=== PATIENT | female | born 1950 | race Caucasian/White ===

== ENCOUNTER → 2017-02-04 | Outpatient (CLI) | payer MEDICARE ==
--- NOTE | 2017-02-04 07:50 | MM ---
Reason for exam: additional evaluation requested from abnormal screening. Last mammogram was performed less than 1 month ago. History: Patient is postmenopausal. Took estrogen for 12 years beginning at age 48. Physical Findings: Nurse did not find any significant physical abnormalities on exam. MG 3D Work Up W/Cad LT Spot compression CC, spot compression MLO, and ML view(s) were taken of the left breast. Prior study comparison: February 02, 2017, bilateral MG 3d screening mammo w/cad. January 28, 2016, bilateral MG screening mammo w CAD. The breast tissue is heterogeneously dense. This may lower the sensitivity of mammography. There is no discrete abnormality. These results were verbally communicated with the patient and result sheet given to the patient on 02/04/17. ASSESSMENT: Negative, BI-RAD 1 RECOMMENDATION: Return to routine screening mammogram schedule for both breasts.
== END ==
LOC: RADMAMWWP 06:44
PROVIDERS: ATTEND Obstetrics & Gynecology

== ENCOUNTER → 2017-11-30 | Outpatient (CLI) | payer MEDICARE ==
[2017-11-30 12:09] LABS: Blood Urea Nitrogen 20 mg/dL (7-17)
== END | disposition home or self-care (01) ==
LOC: LABWHC1 11:26
PROVIDERS: ATTEND Orthopaedic Surgery
DX: Z01.812 Encounter for preprocedural laboratory examination (principal); N28.9 Disorder of kidney and ureter, unspecified
CPT/HCPCS: 36415; 82565; 84520

== ENCOUNTER 2017-12-27 11:10 | Day surgery (SDC) | payer MEDICARE ==
[2017-12-21 11:26] VITALS: BMI 24.7
[~2017-12-27 11:10] MED LIST: DEXAMETHASONE SOD PHOSPHATE 10 MG/ML 1 ML VIAL IV ONE; HYDROmorphone 0.5 MG/0.5 ML SYRINGE IVP PRN; LACTATED RINGERS 1,000 ML IV SCH; ONDANSETRON 4 MG/2 ML VIAL IVP ONE; Pre Op ABX Message 1 EACH MISC MISCELLANE ONE
[2017-12-27 11:47] VITALS: RESP 16
[2017-12-27] MEDS ORDERED: LIDOCAINE 1% 20 ML VIAL (10MG/ML) FOR IV START INTRADERMA ONE (11:47)
[2017-12-27] MEDS ORDERED: MIDAZOLAM 2 MG/2 ML VIAL ONE (12:19)
[2017-12-27] MEDS ORDERED: KETAMINE 10 MG/ML 20 ML VIAL ONE (12:19)
[2017-12-27] MEDS ORDERED: PROPOFOL 10 MG/ML 20 ML VIAL IV ONE (12:19)
[2017-12-27] MEDS ORDERED: fentaNYL (PF) 50 MCG/ML 2 ML AMP ONE (12:19)
[2017-12-27] MEDS ORDERED: diphenhydrAMINE 50 MG/ML 1 ML VIAL ONE (12:19)
[2017-12-27] MEDS ORDERED: ceFAZolin 1,000 MG in SODIUM CHLORIDE 0.9% 1,000 ML IRRIGATION ONE (12:37)
[2017-12-27] MEDS ORDERED: BUPIVACAIN-EPI 0.25%-1:200,000 30 ML VIAL SQ ONE (12:37)
[2017-12-27 13:11] VITALS: TEMP 96.8
[2017-12-27] MEDS ORDERED: LACTATED RINGERS 1,000 ML IV ONE (13:50)
[2017-12-27 14:58] VITALS: BP 126/79; PULSE 64
--- NOTE | 2017-12-29 10:35 | P.OP ---
Date of Procedure: 12/27/17 Procedure(s) Performed: incisional biopsy anterior right knee mass mass c/w bursal tissue with trapped fluid. 3cm size no cyst seen sent to pathology PREOPERATIVE DIAGNOSES: 1. Right knee anterior mass consistent with cyst POSTOPERATIVE DIAGNOSES: 1. Right knee anterior mass, consistent with trapped fluid in prepatellar bursa PROCEDURES PERFORMED: 1. Right knee anterior mass excisional biopsy ANESTHESIA: General ESTIMATED BLOOD LOSS: Less than 25 cc TOURNIQUET: None GUIDE DOG INSTRUCTOR: None COMPLICATIONS: None DISPOSITION: To postanesthesia care unit INDICATIONS: Mrs. Haney is a 67-year-old female who has for several months noticed a mass that has been bothering her because of its location on the anterior aspect of her right knee. She wishes to have the mass excised. I have explained the details of this surgery thoroughly and also explained the potential risks and complications. These are inclusive of, but not limited to: bleeding, infection, scarring, discomfort, blood vessel and nerve damage, stiffness, weakness, need for further surgery, recurrence, failure to relieve symptoms, possibility of malignancy, persistence or worsening of problems, , and other risks. Patient is aware of these risks and agrees to proceed with surgery. The consent form has been signed. PROCEDURE: Appropriate consent was obtained from the patient, who was then taken to the operating room and placed in the supine position. Sedation was initiated. Positioning was performed with care to make sure that all pressure points were adequately padded. Bear-hugger was used along with leg sequential compression device(s). Prepping and draping was completed in the usual aseptic fashion using Chloraprep. Timeout was called, confirming patient identity, side , procedure, and administration of antibiotics. The patient received no intravenous antibiotics prior to incision. Oblique incision along Srini's lines was created directly over the mass for a distance of approximately 1.5 inches. Incision was carried down just through skin and into subcutaneous tissue where the mass was easily located. Careful dissection around the mass occurred using dissecting scissors. The mass was consistent with trapped fluid within the prepatellar bursa. There was really no significant cyst wall present, just collagenous/scar tissue within the prepatellar bursa that had last around a small 3 cm fluid collection. No evidence of infection. Bursal material in this region was removed carefully using dissecting scissors. Resected material was sent to pathology for analysis. Typical serous type fluid was able to be evacuated from the fluid collection. No evidence of pus. Incision was irrigated out thoroughly with normal saline and hemostasis was obtained using electrocautery. Subcutaneous tissue was closed using 2-0 Vicryl suture, followed by skin closure with 4-0 Monocryl suture and Dermabond. Sterile dressing was then applied. Patient tolerated the procedure well and was transferred to recovery room in stable condition. Sponge and needle counts are correct.
== END 2017-12-27 15:20 | disposition home or self-care (01) ==
LOC: OR 11:10
PROVIDERS: ATTEND Orthopaedic Surgery
DX: R22.41 Localized swelling, mass and lump, right lower limb (principal); Z79.899 Other long term (current) drug therapy; I10 Essential (primary) hypertension; E78.5 Hyperlipidemia, unspecified; M81.0 Age-related osteoporosis without current pathological fracture
CPT/HCPCS: 88304; 27340; J2250; J1200; J1100; J2405; J0690; J3010; J2704

== ENCOUNTER → 2018-01-27 | Outpatient (CLI) | payer MEDICARE ==
[2018-01-27 08:53] LABS: Basophils % (A) 1 %; Eosinophils # (A) 0.4 k/uL (0-0.7); Eosinophils % (A) 6 %; HCT 43.5 % (34.0-46.0); Lymphocytes # (A) 2.1 k/uL (1.0-4.8); Lymphocytes % (A) 36 %; MCH 29.4 pg (25.0-35.0); MCHC 32.2 g/dL (31.0-37.0); MCV 91.4 fL (80.0-100.0); Mean Platelet Volume 6.7; Monocytes # (A) 0.4 k/uL (0-1.0); Monocytes % (A) 6 %; Neutrophils # (A) 2.8 k/uL (1.3-7.7); Neutrophils % (A) 49 %; Platelet Count 267 k/uL (150-450); RBC 4.75 m/uL (3.80-5.40); RDW 12.7 % (11.5-15.5); WBC 5.8 k/uL (3.8-10.6)
[2018-01-27 09:00] LABS: Appearance,Urine Clear (Clear); Bacteria,Urine Rare /hpf; Bilirubin,Urine Negative (Negative); Blood,Urine Negative (Negative); Color,Urine Yellow; Glucose,Urine (UA) Negative (Negative); Ketones,Urine Negative (Negative); Leukocyte Esterase,Urine Moderate (Negative); Mucus,Urine Rare /hpf; Nitrite,Urine Negative (Negative); PH, Urine 7.5 (5.0-8.0); Protein,Urine Negative (Negative); Specific Gravity,Urine 1.012 (1.001-1.035); Squamous Epithelial Cell,Urine 3 /hpf (0-4); Urobilinogen,Urine <2.0 mg/dL (<2.0); WBC,Urine 2 /hpf (0-5)
[2018-01-27 09:38] LABS: ALT 50 U/L (9-52); AST 41 U/L (14-36); Albumin 4.1 g/dL (3.5-5.0); Alkaline Phosphatase 45 U/L (38-126); Anion Gap 8 mmol/L; Blood Urea Nitrogen 16 mg/dL (7-17); Calcium 9.6 mg/dL (8.4-10.2); Carbon Dioxide 29 mmol/L (22-30); Chloride 105 mmol/L (98-107); Cholesterol 243 mg/dL (<200); Glucose 104 mg/dL (74-99); HDL Cholesterol 82 mg/dL (40-60); LDL Cholesterol,Calculated 134 mg/dL (0-99); Potassium 4.3 mmol/L (3.5-5.1); Sodium 142 mmol/L (137-145); Total Bilirubin 0.7 mg/dL (0.2-1.3); Total Protein 7.1 g/dL (6.3-8.2); Triglycerides 135 mg/dL (<150)
== END ==
LOC: LABWHC1 07:38
PROVIDERS: ATTEND Internal Medicine
DX: E55.9 Vitamin D deficiency, unspecified (principal); I10 Essential (primary) hypertension
CPT/HCPCS: 36415; 80053; 80061; 81001; 82306; 85025

== ENCOUNTER → 2018-02-03 | Outpatient (CLI) | payer MEDICARE ==
--- NOTE | 2018-02-03 13:48 | MM ---
Reason for exam: screening (asymptomatic). Last mammogram was performed 1 year ago. History: Patient is postmenopausal. Took estrogen for 12 years beginning at age 48. Physical Findings: A clinical breast exam by your physician is recommended on an annual basis and results should be correlated with mammographic findings. MG 3D Screening Mammo W/Cad Bilateral CC and MLO view(s) were taken. Prior study comparison: February 04, 2017, left breast MG 3d work up w/cad LT. February 02, 2017, bilateral MG 3d screening mammo w/cad. The breast tissue is heterogeneously dense. This may lower the sensitivity of mammography. No significant changes when compared with prior studies. ASSESSMENT: Negative, BI-RAD 1 RECOMMENDATION: Routine screening mammogram of both breasts in 1 year.
== END | disposition home or self-care (01) ==
LOC: RADMAMWWP 07:00
PROVIDERS: ATTEND Internal Medicine
DX: Z12.31 Encounter for screening mammogram for malignant neoplasm of breast (principal)
CPT/HCPCS: 77063; 77067

== ENCOUNTER → 2019-02-01 | Outpatient (CLI) | payer MEDICARE ==
[2019-02-01 07:32] LABS: Basophils % (A) 1 %; Eosinophils # (A) 0.3 k/uL (0-0.7); Eosinophils % (A) 6 %; HCT 39.8 % (34.0-46.0); HGB 13.3 gm/dL (11.4-16.0); Lymphocytes # (A) 1.8 k/uL (1.0-4.8); Lymphocytes % (A) 36 %; MCH 30.1 pg (25.0-35.0); MCHC 33.4 g/dL (31.0-37.0); MCV 90.3 fL (80.0-100.0); Mean Platelet Volume 5.6; Monocytes # (A) 0.4 k/uL (0-1.0); Monocytes % (A) 8 %; Neutrophils # (A) 2.3 k/uL (1.3-7.7); Neutrophils % (A) 47 %; Platelet Count 294 k/uL (150-450); RBC 4.41 m/uL (3.80-5.40); RDW 12.3 % (11.5-15.5); WBC 4.9 k/uL (3.8-10.6)
[2019-02-01 07:39] LABS: Appearance,Urine Clear (Clear); Bacteria,Urine Rare /hpf; Bilirubin,Urine Negative (Negative); Blood,Urine Negative (Negative); Color,Urine Yellow; Glucose,Urine (UA) Negative (Negative); Ketones,Urine Negative (Negative); Leukocyte Esterase,Urine Small (Negative); Mucus,Urine Rare /hpf; Nitrite,Urine Negative (Negative); Protein,Urine Negative (Negative); RBC,Urine 1 /hpf (0-5); Specific Gravity,Urine 1.015 (1.001-1.035); Squamous Epithelial Cell,Urine 3 /hpf (0-4); Urobilinogen,Urine <2.0 mg/dL (<2.0); WBC,Urine 3 /hpf (0-5)
[2019-02-01 12:10] LABS: African American GFR (CKD) 87.8 (60.0-200.0); Albumin 4.2 g/dL (3.80-4.90); Albumin/Globulin Ratio 2.47 (1.60-3.17); Anion Gap 7.1 mmol/L (4.00-12.00); BUN/Creat Ratio 23.75 Ratio (12.00-20.00); Calcium 9.6 mg/dL (8.7-10.3); Carbon Dioxide 28.9 mmol/L (21.6-31.8); Chol/HDL Ratio 2.93; Globulin 1.7 g/dL (1.6-3.3); LDL Cholesterol,Calculated 111.2 mg/dL (0.0-131.0); Total Bilirubin 0.7 mg/dL (0.3-1.2); Total Protein 5.9 g/dL (6.2-8.2); VLDL Calculation 23.8 mg/dL (5.00-40.00)
== END | disposition home or self-care (01) ==
LOC: LABWHC1 06:34
PROVIDERS: ATTEND Internal Medicine
DX: G47.00 Insomnia, unspecified (principal); I10 Essential (primary) hypertension; Z87.39 Personal history of other diseases of the musculoskeletal system and connective tissue
CPT/HCPCS: 36415; 80053; 80061; 81001; 82306; 84443; 85025

== ENCOUNTER → 2020-01-10 | Outpatient (CLI) | payer MEDICARE ==
[2020-01-10 12:21] VITALS: BP 128/85; PULSE 67; RESP 18; TEMP 98.1
--- NOTE | 2020-01-10 13:47 | P.HPOB ---
History of Present Illness H&P Date: 01/10/20 Chief Complaint: Vulvar irritation for 1 month This is a 69-year-old 0-2 with an LMP of 1997. She is status post MARTIN/BSO for uterine fibroids. Her last well woman exam was done in March 2019 in [place]. She also had a mammogram done at that time and was benign. She is complaining of intermittent vulvar irritation greatest in the area of the labia minora. She started noticing this around December 11. It does seem to be intermittent and can feel like irritation, pruritus or soreness. The location seems to be variable and sometimes on the right and sometimes on the left side. She especially notices this around the time of wiping. She denies any vaginal discharge or vaginal odor. She is sexually active and has been noticing significant vaginal dryness and discomfort with sexual intercourse even despite using a lubricant. She has not been sexually active for the last couple of weeks because of the vulvar irritation. She has a history of genital HSV about 10 years ago but has not had outbreaks for several years. She states the irritation does not feel like the HSV outbreak that she had in the past. She had taken an antibiotic around the second week of December for an insect bite. Her vulvar irritation started before the antibiotic was started. She has been having some urinary frequency during the past month without dysuria. She has not gotten frequent urinary tract infections or yeast infections in the past. She is in a monogamous relationship and does not feel she is at risk for sexually transmitted infections. She has looked at the vulva and has not noticed any pallor or white patches. Review of Systems She denies fever. She denies respiratory, cardiac, or GI problems. : As above. Past Medical History Past Medical History: Hyperlipidemia, Hypertension, Osteoarthritis (OA) Additional Past Medical History / Comment(s): MASS FRONT OF RIGHT KNEE. Osteoporosis which went to osteopenia after several years use of Actonel and Prolia. Past HOSPICE NURSE history: genital HSV in the past. History of Any Multi-Drug Resistant Organisms: None Reported Past Surgical History: Hysterectomy Additional Past Surgical History / Comment(s): MARTIN/BSO 1997. COLONOSCOPY 2013. Past Anesthesia/Blood Transfusion Reactions: No Reported Reaction Past Psychological History: No Psychological Hx Reported Smoking Status: Never smoker Past Alcohol Use History: Occasional Past Drug Use History: None Reported Additional History: She has been since 1975 and is retired from [employer]. She spends her [place] in [place]. - Past Family History Mother Family Medical History: No Reported History Additional Family Medical History / Comment(s): She denies family history of cancer of the breast uterus or ovaries or colon. Medications and Allergies Home Medications Medication Instructions Recorded Confirmed Type Eszopiclone [Lunesta] 3 mg PO HS 10/04/13 01/10/20 History Lisinopril [Zestril] 10 mg PO DAILY 10/04/13 01/10/20 History Simvastatin [Zocor] 10 mg PO DAILY 10/04/13 01/10/20 History hydroCHLOROthiazide [Hydrodiuril] 12.5 mg PO DAILY 10/04/13 01/10/20 History Biotin 10 mg PO DAILY 10/06/13 01/10/20 History Cholecalciferol [Vitamin D3] 1,000 unit PO DAILY 10/06/13 01/10/20 History Calcium Carbonate [Calcium] 1,200 mg PO DAILY 01/10/20 01/10/20 History Loteprednol Etabonate [Lotemax] 5 ml BOTH EYES DAILY PRN 01/10/20 01/10/20 History Allergies Allergy/AdvReac Type Severity Reaction Status Date / Time No Known Allergies Allergy Verified 12/27/17 11:32 Exam Vital Signs Temp Pulse Resp BP Pulse Ox 01/10/20 12:15 98.1 F 67 18 128/85 99 Intake and Output 01/09/20 01/10/20 01/10/20 22:59 06:59 14:59 Other: Weight 62.142 kg Height 5 feet 2-1/2 inches, weight 137 pounds, BMI 24.7. This is a well-developed well-nourished white female who is alert and oriented times 3 in no acute distress. ABDOMEN: Soft, nontender, without palpable masses. PELVIC EXAM: External genitalia reveals mild to moderate atrophy with mild generalized erythema. There are no focal lesions, leukoplakia, or ulceration. Vagina appears normal with mild to moderate atrophy. There is no evidence of prolapse. Bimanual examination is negative for mass or tenderness. IMPRESSION: 1. 69-year-old menopausal female status post MARTIN/BSO for benign reasons with acute vulvitis possibly secondary to genital atrophy or recent irritant. The exam is not consistent with lichen sclerosus or genital HSV. Differential diagnosis will also include Paige vaginitis, Gardnerella bacterial vaginosis and less likely secondary to UTI. 2. Mild urinary frequency which may or may not be related to #1. 3. Dyspareunia with vaginal dryness secondary to genital atrophy. PLAN: 1. Affirm testing for chlamydia, Gardnerella, and Trichomonas was obtained from the vagina. 2. Urine by clean catch for Urinalysis has been obtained. 3. Kenalog 0.1% cream twice a day as needed. She was advised to avoid over washing, scratching, and rubbing the affected area. 4. When the vulvar irritation has improved, she will have a trial of Premarin vaginal cream 1-2 g intravaginally 2 times weekly. The electronic prescriptions will be sent to [facility] pharmacy on [address]. 5. She was instructed to call if symptoms are not improving or if problems. 6. She was advised to return in one year for her annual well woman exam. She may have this done in [place] since she spends much of the year in [place]. Total time spent with patient 25 minutes.
[2020-01-10 15:50] LABS: Appearance,Urine Clear (Clear); Bilirubin,Urine Negative (Negative); Blood,Urine Negative (Negative); Color,Urine Colorless; Glucose,Urine (UA) Negative (Negative); Ketones,Urine Negative (Negative); Leukocyte Esterase,Urine Negative (Negative); Nitrite,Urine Negative (Negative); Protein,Urine Negative (Negative); Specific Gravity,Urine 1.007 (1.001-1.035); Urobilinogen,Urine <2.0 mg/dL (<2.0)
[2020-01-10 23:42] LABS: Gardnerella Negative (Negative); Source Vagina; Trichomonas Negative (Negative)
--- NOTE | 2020-01-11 20:36 | P.PN ---
Progress Note - Text Progress Note Date: 01/11/20 The patient was notified by phone of the negative urinalysis and negative affirm testing for Paige, Gardnerella, and Trichomonas. She will use the Kenalog cream as directed, then if feeling better, will use the Premarin vaginal cream as directed.
== END | disposition home or self-care (01) ==
LOC: WWCWWP 11:52
PROVIDERS: ATTEND Obstetrics & Gynecology
DX: N76.2 Acute vulvitis (principal); R35.0 Frequency of micturition
CPT/HCPCS: 81003; 87480; 87510; 87660

== ENCOUNTER → 2020-11-07 | Outpatient (CLI) | payer MEDICARE ==
--- NOTE | 2020-11-11 08:56 | MM ---
Reason for exam: screening (asymptomatic). Last mammogram was performed 2 years and 9 months ago. History: Patient is postmenopausal. Took hormonal contraceptives for 15 years. Took estrogen for 12 years beginning at age 48. Physical Findings: A clinical breast exam by your physician is recommended on an annual basis and results should be correlated with mammographic findings. MG 3D Screening Mammo W/Cad Bilateral CC and MLO view(s) were taken. Prior study comparison: February 03, 2018, bilateral MG 3d screening mammo w/cad. February 04, 2017, left breast MG 3d work up w/cad LT. The breast tissue is heterogeneously dense. This may lower the sensitivity of mammography. Lateral asymmetric density left CC view does not persist on 3D images. No significant changes when compared with prior studies. ASSESSMENT: Benign, BI-RAD 2 RECOMMENDATION: Routine screening mammogram of both breasts in 1 year. Patient should continue monthly self breast exams. A negative report should not preclude additional follow up of suspicious palpable abnormalities.
== END | disposition home or self-care (01) ==
LOC: RADMAMWWP 16:11
PROVIDERS: ATTEND Internal Medicine
DX: Z12.31 Encounter for screening mammogram for malignant neoplasm of breast (principal); Z78.0 Asymptomatic menopausal state
CPT/HCPCS: 77063; 77067

== ENCOUNTER → 2021-11-19 | Outpatient (CLI) | payer MEDICARE ==
--- NOTE | 2021-11-19 16:17 | MM ---
Reason for Exam: Screening (asymptomatic). Last mammogram was performed 1 year(s) and 1 month(s) ago. Patient History: Menarche at age 12. First Full-Term at age 26. Left ovary removed at age 46. Right ovary removed at age 46. Hysterectomy at age 46. Postmenopausal. Estrogen for 12 years from age 48 until age 60. Patient used Hormonal Contraceptives for 15 years. Risk Values: Amy 5 year model risk: 1.9%. NCI Lifetime model risk: 5.6%. Prior Study Comparison: 02/04/2017 Left Diagnostic Mammogram, [facility]. 02/03/2018 Bilateral Screening Mammogram, [facility]. 11/07/2020 Bilateral Screening Mammogram, [facility]. Tissue Density: The breast tissue is heterogeneously dense. This may lower the sensitivity of mammography. Findings: Analyzed By CAD. There is no suspicious group of microcalcifications or new suspicious mass in either breast. No significant change from prior exams. Overall Assessment: Negative, BI-RAD 1 Management: Screening Mammogram of both breasts in 1 year. A clinical breast exam by your physician is recommended on an annual basis and results should be correlated with mammographic findings. Electronically signed and approved by: Al Whitney D.O.
--- NOTE | 2021-11-19 16:23 | BD ---
EXAMINATION TYPE: Axial Bone Density DATE OF EXAM: 11/19/2021 COMPARISON: 02.02.2017 CLINICAL HISTORY: 70 years year old Female. ICD-10 CODE: M85.88 OTH DISRD OF BONE DENSITY Height: 62 Weight: 142 FRAX RISK QUESTIONS: NOTHING TO NOTE HERE RISK FACTORS HISTORY OF: History of Wrist Fracture: RT WRIST FX A YOUTH Postmenopausal woman: YES, AT AGE 48...TOTAL HYST Take estrogen and/or progesterone medications: YES, IN THE PAST FOR ABOUT 15 YRS Lost more than 2 inches in height since high school: YES Hyperparathyroidism: NO Adrenal Insufficiency: NO MEDICATIONS: Osteoporosis Medications: YES IN THE PAST FOR ABOUT 15YRS AGO FOR FOSAMAX, AND 10YRS AGO X2 YRS OF ME KEL, NOTHING NOW Additional Medications: BP MEDS, STATIN FOR CHOLESTEROL, Additional History: HYPERTENSION, OSTEOPENIA, CHOLESTEROL EXAM MEASUREMENTS: Bone mineral densitometry was performed using the [employer] System. Bone mineral density as measured about the Lumbar spine is: ----- L1-L4(G/cm2): 1.018 T Score Values are as follows: ----- L1: -1.6 ----- L2: -2.3 ----- L3: -1.0 ----- L4: -0.9 ----- L1-L4: -1.3 Bone mineral density has: Increased 4.4% since study of: 02.02.2017 Bone mineral density about the R hip (g/cm2): 0.887 Bone mineral density about the L hip (g/cm2): 0.956 T Score values are as follows: -----R Neck: -0.6 -----L Neck: -1.2 -----R Total: -1.0 -----L Total: -0.4 Bone mineral density has: Increased 2.1% since study of: 02.02.2017 FRAX%s: The graph provided illustrates a 15.1% chance for a major osteoporotic fx and a 1.8% chance f or the hips probability for fx in 10 years time. IMPRESSION: Osteopenia (T Score between -2.5 and -1). There is slightly increased risk of fracture and the patient may be considered for treatment. Re-Screen 2-5 years. NOTE: T-SCORE=SD OF THE YOUNG ADULT MEAN.
== END | disposition home or self-care (01) ==
LOC: RADMAMWWP 06:49
PROVIDERS: ATTEND Family Medicine
DX: Z12.31 Encounter for screening mammogram for malignant neoplasm of breast (principal); M85.89 Other specified disorders of bone density and structure, multiple sites
CPT/HCPCS: 77063; 77067; 77080

== ENCOUNTER → 2022-09-08 | Outpatient (CLI) | payer MEDICARE | END | disposition home or self-care (01) | LOC: LABWHC1 11:35 | PROVIDERS: ATTEND Family Medicine | DX: R05.9 Cough, unspecified (principal); R53.83 Other fatigue; R55 Syncope and collapse | CPT/HCPCS: 36415 ==

== ENCOUNTER → 2022-09-29 | Outpatient (CLI) | payer MEDICARE ==
[2022-09-29 13:41] LABS: African American GFR (CKD) 89 (>60 ml/min/1.73 sqM); Blood Urea Nitrogen 18 mg/dL (7-17); Non-African American GFR(CKD) 77 (>60 ml/min/1.73 sqM)
--- NOTE | 2022-09-29 16:46 | CT ---
EXAMINATION TYPE: CT chest w con CT DLP: 164.9 mGycm, Automated exposure control for dose reduction was used. DATE OF EXAM: 09/29/2022 2:38 PM COMPARISON: None CLINICAL INDICATION:Female, 71 years old with history of R91.8; chest tightness x5 weeks TECHNIQUE: Multiple axial images were obtained through the chest. Sagittal and coronal reformats were created for review. Contrast used:100 mL of Isovue 300 with IV Contrast Oral contrast used: none. FINDINGS: LUNGS/ PLEURA: * Left lateral chest wall fat-containing lesion likely representing a lipoma measuring 3.5 x 1.8 cm. * The right major fissure demonstrates masslike consolidation measuring 2.3 x 1.5 x 2.6 cm. Right hi lar adenopathy measuring 2.5 x 2.0 cm. * Right lower lobe 3 mm pulmonary nodule. Series 3 image 33 * Left upper lobe 2 mm pulmonary nodule. Series 3 image 17 * No focal consolidation, pneumothorax or pleural effusion. AIRWAY: Patent and unremarkable. HEART: Size within normal limits. Mild atherosclerosis of the arterial vasculature. MEDIASTINUM: Prominent lymph nodes which are not enlarged by CT criteria are seen throughout the medi astinum including right low paratracheal measuring 9 mm there is also some fluid in the pericardial r ecesses. VASCULATURE: No aortic aneurysm. MUSCULOSKELETAL: No acute osseous abnormalities SOFT TISSUES/LYMPH NODES: Unremarkable. LOWER NECK: Left thyroid gland nodules. UPPER ABDOMEN: No significant findings. IMPRESSION: 1. Right major fissure masslike consolidation measuring up to 2.6 cm with right pulmonary hilum lymp hadenopathy and prominent mediastinal lymph nodes which are at this time enlarged. Findings concernin g for malignancy with metastatic disease. Further evaluation with PET/CTs recommended. 2. Additional left chest wall suspected lipoma.
== END | disposition home or self-care (01) ==
LOC: RADCTMAIN 13:05
PROVIDERS: ATTEND Internal Medicine
DX: R59.1 Generalized enlarged lymph nodes (principal); R91.8 Other nonspecific abnormal finding of lung field; R07.89 Other chest pain
CPT/HCPCS: 82565; 84520; 71260; 36415; Q9967

== ENCOUNTER → 2022-10-28 | Outpatient (CLI) | payer MEDICARE ==
[2022-10-28 16:08] LABS: ALT 21 U/L (8-44); AST 21 U/L (13-35); Albumin 4.4 d/dL (3.8-4.9); Albumin/Globulin Ratio 1.63 Ratio (1.60-3.17); Alkaline Phosphatase 65 U/L (41-126); Blood Urea Nitrogen 21.6 mg/dL (9.0-27.0); Calcium 10.4 mg/dL (8.7-10.3); Carbon Dioxide 26.7 mmol/L (21.6-31.8); Chloride 104 mmol/L (96-109); Globulin 2.7 d/dL (1.6-3.3); Glucose 102 mg/dL (70-110); Potassium 5.1 mmol/L (3.5-5.5); Sodium 144 mmol/L (135-145); Total Bilirubin 0.3 mg/dL (0.3-1.2); Total Protein 7.1 d/dL (6.2-8.2)
[2022-10-28 16:13] LABS: Basophils # (A) 0.03 X 10*3/uL (0.00-0.10); Basophils % (A) 0.5 %; Eosinophils # (A) 0.31 X 10*3/uL (0.04-0.35); Eosinophils % (A) 5.2 %; HCT 39.8 % (37.2-46.3); HGB 12.6 d/dL (12.0-15.0); Lymphocytes # (A) 1.92 X 10*3/uL (0.90-5.00); MCH 28.7 pg (27.0-32.0); MCHC 31.7 d/dL (32.0-37.0); MCV 90.7 FL (80.0-97.0); Mean Platelet Volume 9.7 FL (9.5-12.2); Monocytes # (A) 0.48 X 10*3/uL (0.20-1.00); NRBC Per 100 WBC 0 X 10*3/uL (0.00-0.01); Neutrophils # (A) 3.25 X 10*3/uL (1.80-7.70); Neutrophils % (A) 54.1 %; Platelet Count 299 X 10*3/uL (140-440); RBC 4.39 X 10*6/uL (4.10-5.20); RDW 13.3 % (11.5-14.5)
== END | disposition home or self-care (01) ==
LOC: LABWHC1 10:13
PROVIDERS: ATTEND Internal Medicine
DX: M35.00 Sjogren syndrome, unspecified (principal); A07.3 Isosporiasis
CPT/HCPCS: 36415; 80053; 85025; 86235

== ENCOUNTER → 2022-12-01 | Outpatient (CLI) | payer MEDICARE ==
--- NOTE | 2022-12-02 13:41 | MM ---
Reason for Exam: Screening (asymptomatic). Last screening mammogram was performed 12 month(s) ago. Patient History: Menarche at age 12. First Full-Term at age 26. Left ovary removed at age 46. Right ovary removed at age 46. Hysterectomy at age 46. Postmenopausal. Estrogen for 12 years from age 48 until age 60. Patient used Hormonal Contraceptives for 15 years. Risk Values: Amy 5 year model risk: 1.9%. NCI Lifetime model risk: 5.4%. Prior Study Comparison: 02/03/2018 Bilateral Screening Mammogram, [facility]. 11/07/2020 Bilateral Screening Mammogram, [facility]. 11/19/2021 Bilateral MG 3D screening mammo w/cad, [facility]. Tissue Density: The breast tissue is heterogeneously dense. This may lower the sensitivity of mammography. Findings: Analyzed By CAD. There is no suspicious group of microcalcifications or new suspicious mass in either breast. Overall Assessment: Benign, BI-RAD 2 Management: Screening Mammogram of both breasts in 1 year. . Patient should continue monthly self-breast exams. A clinical breast exam by your physician is recommended on an annual basis. This exam should not preclude additional follow-up of suspicious palpable abnormalities. Note on Amy scores and lifetime risk: 1. A Amy score greater than 3% is considered moderate risk. If this is the case, consider specialist referral to assess eligibility for a risk reducing agent. 2. If overall lifetime risk for the development of breast cancer is 20% or higher, the patient may qualify for future screening with alternating mammogram and breast MRI. Electronically signed and approved by: John Andre M.D. Radiologis
== END | disposition home or self-care (01) ==
LOC: RADMAMWWP 13:55
PROVIDERS: ATTEND Family Medicine
DX: Z12.31 Encounter for screening mammogram for malignant neoplasm of breast (principal); Z78.0 Asymptomatic menopausal state
CPT/HCPCS: 77063; 77067

== ENCOUNTER → 2022-12-19 | Outpatient (CLI) | payer MEDICARE ==
--- NOTE | 2022-12-21 11:20 | PE ---
EXAMINATION TYPE: PET CT fusion skull to thigh DATE OF EXAM: 12/19/2022 CLINICAL INDICATION:Female, 72 years old with history of R91.1; TECHNIQUE: Following the intravenous administration of 12.52 mCi of F-18 FDG, whole body images are performed from the skull base to the midthigh. Images are reviewed on the computer in the coronal, axial, and sagittal planes. Reconstructed rotating images are created on independent workstation and reviewed on the computer. A non-contrast CT is performed in conjunction with the PET scan. Glucose level 89 mg/dL CT DLP: 267.73 mGycm, Automated exposure control for dose reduction was used. COMPARISON: CT 09/29/2022, PET/CT None, FINDINGS: Mediastinal SUV mean is 2.2. Hepatic parenchyma SUV mean is 3.1. SKULL BASE AND NECK: Asymmetric left thyroid gland FDG activity max SUV 3.4 CHEST, MEDIASTINUM, AND HILAR REGION: Abnormal FDG activity identified: Examples include * Right low paratracheal 5 mm lymph node max SUV 3.9 * Right pulmonary hilum lymph node which is difficult to measure max SUV 7.3. * Prevascular space lymph node measuring 5 mm Max SUV 4.5 * Right pulmonary nodule measuring 18 mm and max SUV 2.0. * Right upper lobe 4 mm pulmonary nodule, right lower lung medial pulmonary nodule measuring 4 mm, l ingular 5 mm pulmonary nodule and other scattered subcentimeter pulmonary nodules are below the sensi tivity for PET/CT. Left chest wall lipoma measuring up to 3.4 x 1.8 cm. ABDOMEN AND PELVIS: No suspicious radiotracer activity. MUSCULOSKELETAL STRUCTURES: No suspicious radiotracer activity. OTHER CT: Atherosclerosis at the carotid bifurcations. Coronary artery calcifications. Moderate stool burden throughout the colon. There is scattered colonic diverticula. Fat-containing inguinal hernias bilaterally. IMPRESSION: 1. FDG avid lymph nodes throughout the mediastinum suspicious for malignancy. 2. Right lower lobe pulmonary nodule with low levels FDG activity however they remain suspicious for malignancy and tissue sampling should be performed. Bronchioloalveolar malignancy can have low FDG l evels. 3. Scattered subcentimeter pulmonary nodules which are below the sensitivity for PET/CT. Attention o n follow-up imaging. Additional sites of metastatic disease remain in the differential. 4. Asymmetric left thyroid gland uptake in the inferior aspect on the left. Correlate with dedicated thyroid ultrasound is recommended.
== END | disposition home or self-care (01) ==
LOC: RADPETMAIN 10:05
PROVIDERS: ATTEND Internal Medicine
DX: R91.1 Solitary pulmonary nodule (principal); E07.89 Other specified disorders of thyroid
CPT/HCPCS: 78815; A9552

== ENCOUNTER → 2023-11-16 | Outpatient (CLI) | payer MEDICARE | END | disposition home or self-care (01) | LOC: LABPRL 08:30 | PROVIDERS: ATTEND Family Medicine | DX: I10 Essential (primary) hypertension (principal); E78.00 Pure hypercholesterolemia, unspecified; M85.9 Disorder of bone density and structure, unspecified | CPT/HCPCS: 80053; 80061; 82306; 84443; 85025 ==

== ENCOUNTER → 2023-12-06 | Outpatient (CLI) | payer MEDICARE ==
--- NOTE | 2023-12-14 14:19 | MM ---
Reason for Exam: Screening (asymptomatic). Last screening mammogram was performed 12 month(s) ago. Patient History: Menarche at age 12. First Full-Term at age 26. Left ovary removed at age 46. Right ovary removed at age 46. Hysterectomy at age 46. Postmenopausal. Estrogen for 12 years from age 48 until age 60. Patient used Hormonal Contraceptives for 15 years. Risk Values: Amy 5 year model risk: 2.0%. NCI Lifetime model risk: 5.1%. Prior Study Comparison: 11/07/2020 Bilateral Screening Mammogram, [facility]. 11/19/2021 Bilateral MG 3D screening mammo w/cad, [facility]. 12/01/2022 Bilateral MG 3D screening mammo w/cad, [facility]. Tissue Density: There are scattered areas of fibroglandular density. Findings: Analyzed By CAD. Right breast: There is no suspicious group of microcalcifications or new suspicious mass. Left breast: Asymmetry CC view middle depth 8.0 cm from the nipple in the lateral aspect. Minimal appreciated on the MLO view. Overall Assessment: Incomplete: need additional imaging evaluation, BI-RAD 0 Management: Diagnostic Mammogram of the left breast. [facility] will attempt to contact patient to return for supplemental views and ultrasound if indicated. Patient should continue monthly self-breast exams. A clinical breast exam by your physician is recommended on an annual basis. This exam should not preclude additional follow-up of suspicious palpable abnormalities. Note on Amy scores and lifetime risk: 1. A Amy score greater than 3% is considered moderate risk. If this is the case, consider specialist referral to assess eligibility for a risk reducing agent. 2. If overall lifetime risk for the development of breast cancer is 20% or higher, the patient may qualify for future screening with alternating mammogram and breast MRI. Electronically signed and approved by: Cameron Patel DO
== END | disposition home or self-care (01) ==
LOC: RADMAMWWP 14:15
PROVIDERS: ATTEND Family Medicine
DX: Z12.31 Encounter for screening mammogram for malignant neoplasm of breast
CPT/HCPCS: 77063; 77067

== ENCOUNTER → 2023-12-20 | Outpatient (CLI) | payer MEDICARE ==
--- NOTE | 2023-12-20 12:04 | BD ---
EXAMINATION TYPE: Axial Bone Density DATE OF EXAM: 12/20/2023 CLINICAL HISTORY: 72 years old Female. ICD-10 CODE: M85.88DISRD OF BONE DENSITY AND STRUCTURE, OTHER S Height: 63 Weight: 142 FRAX RISK QUESTIONS: Alcohol (3 or more units per day): no Family History (Parent hip fracture): yes Glucocorticoids (More than 3mos): no (Ex: prednisone, prednisolone, methylprednisolone, dexamethasone, and hydrocortisone). History of Fracture in Adulthood: yes Secondary Osteoporosis: 1. Type 1 Diabetes: no 2. Hyperthyroidism: no 3. Menopause before 45: yes 4. Malnutrition: no 5. Chronic liver disease: no Rheumatoid Arthritis: no Current Tobacco Use: no RISK FACTORS HISTORY OF: Surgery to Spine/Hip(right/left)/Wrist (right/left): no EXAM MEASUREMENTS: Bone mineral densitometry was performed using the [employer]. Bone mineral density as measured about the Lumbar spine is: ----- L1-L4(G/cm2): 0.939 T Score Values are as follows: ----- L1: -1.9 ----- L2: -2.8 ----- L3: -2.2 ----- L4: -1.4 ----- L1-L4: -2.0 Z Score Values are as follows: ----- L1: -0.2 ----- L2: -1.1 ----- L3: -0.5 ----- L4: 0.4 ----- L1-L4: decreased -0.3 Bone mineral density has: decreased -7.8 % since study of: 11.19.2021 Bone mineral density about the R hip (g/cm2): 0.875 Bone mineral density about the L hip (g/cm2): 0.894 T Score values are as follows: -----R Neck: -1.5 -----L Neck: -1.5 -----R Total: -1.1 -----L Total: -0.9 Z Score values are as follows: -----R Neck: 0.3 -----L Neck: 0.3 -----R Total: 0.6 -----L Total: 0.7 Bone mineral density has: decreased -4.0 % since study of: 8.10.2021 FRAX%s: The graph provided illustrates a 25.7% chance for a major osteoporotic fx and a 9.0% chance f or the hips probability for fx in 10 years time. IMPRESSION: Osteopenia (T Score between -2.5 and -1). There is slightly increased risk of fracture and the patient may be considered for treatment. Re-Screen 2-5 years. NOTE: T-SCORE=SD OF THE YOUNG ADULT MEAN.
== END | disposition home or self-care (01) ==
LOC: RADBDWWP 08:21
PROVIDERS: ATTEND Family Medicine
DX: M85.88 Other specified disorders of bone density and structure, other site
CPT/HCPCS: 77080

== ENCOUNTER → 2023-12-21 | Outpatient (CLI) | payer MEDICARE ==
--- NOTE | 2023-12-21 08:31 | USB ---
Reason for Exam: Additional evaluation requested from abnormal screening. Patient History: Menarche at age 12. First Full-Term at age 26. Left ovary removed at age 46. Right ovary removed at age 46. Hysterectomy at age 46. Postmenopausal. Estrogen for 12 years from age 48 until age 60. Patient used Hormonal Contraceptives for 15 years. Risk Values: Amy 5 year model risk: 2.0%. NCI Lifetime model risk: 5.1%. Technique: Method: Targeted. Prior Study Comparison: 11/19/2021 Bilateral MG 3D screening mammo w/cad, [facility]. 12/01/2022 Bilateral MG 3D screening mammo w/cad, [facility]. 12/06/2023 Bilateral MG 3D screening mammo w/cad, [facility]. Findings: The upper outer quadrant of the left breast, the axilla of the left breast and the retroareolar of the left breast were scanned. No solid or cystic masses are identified.. Overall Assessment: Probably benign, BI-RAD 3 Management: Diagnostic Mammogram of the left breast in 6 months. A clinical breast exam by your physician is recommended on an annual basis and results should be correlated with mammographic findings. This exam should not preclude additional follow-up of suspicious palpable abnormalities. Results were given to the patient verbally at the time of exam. Electronically signed and approved by: John Andre M.D. Radiologis
--- NOTE | 2023-12-21 08:37 | MM ---
Reason for Exam: Additional evaluation requested from abnormal screening. Last screening mammogram was performed less than 1 month ago. Patient History: Menarche at age 12. First Full-Term at age 26. Left ovary removed at age 46. Right ovary removed at age 46. Hysterectomy at age 46. Postmenopausal. Estrogen for 12 years from age 48 until age 60. Patient used Hormonal Contraceptives for 15 years. Risk Values: Amy 5 year model risk: 2.0%. NCI Lifetime model risk: 5.1%. Prior Study Comparison: 11/19/2021 Bilateral MG 3D screening mammo w/cad, [facility]. 12/01/2022 Bilateral MG 3D screening mammo w/cad, [facility]. 12/06/2023 Bilateral MG 3D screening mammo w/cad, [facility]. Tissue Density: Left: The breasts are heterogeneously dense, which may obscure small masses. Findings: Analyzed By CAD. 7 cm from the nipple upper outer quadrant left breast there is a 5 mm nodular density. Ultrasound recommended. Overall Assessment: Incomplete: need additional imaging evaluation, BI-RAD 0 Management: Diagnostic Breast Ultrasound of the left breast. . Results were given to the patient verbally at the time of exam. Patient should continue monthly self-breast exams. A clinical breast exam by your physician is recommended on an annual basis. This exam should not preclude additional follow-up of suspicious palpable abnormalities. Note on Amy scores and lifetime risk: 1. A Amy score greater than 3% is considered moderate risk. If this is the case, consider specialist referral to assess eligibility for a risk reducing agent. 2. If overall lifetime risk for the development of breast cancer is 20% or higher, the patient may qualify for future screening with alternating mammogram and breast MRI. Electronically signed and approved by: John Andre M.D. Radiologis
== END | disposition home or self-care (01) ==
LOC: RADMAMWWP 07:49
PROVIDERS: ATTEND Family Medicine
DX: R92.8 Other abnormal and inconclusive findings on diagnostic imaging of breast
CPT/HCPCS: 77061; 77065